=== PATIENT | male | born 2005 ===

== ENCOUNTER 2023-11-15 10:05 | Emergency (ER) | payer BC, OTHER ==
[2023-11-15] MEDS ORDERED: Lidocaine 1% 5 ML VIAL INJECT STA (10:35)
[2023-11-15] MEDS ORDERED: Diphtheria,Pertussis(Acell),Tetanus Vaccine 0.5 ML Syringe IM ONE (10:45)
== END 2023-11-15 11:22 | disposition home or self-care (01) ==
LOC: MW.ED 10:05
DX: S60.450A Superficial foreign body of right index finger, initial encounter (principal); Z23 Encounter for immunization; W45.8XXA Other foreign body or object entering through skin, initial encounter
CPT/HCPCS: 73130-26-RT; 73130-RT; 90471; 90715; 99283; 99283-25; J3490